=== PATIENT | female | born 1970 ===

== ENCOUNTER 2018-05-29 08:27 | Outpatient (CLI) | payer OTHER | END 2018-05-29 08:39 | disposition home or self-care (01) | LOC: NUCLEAR 08:27 | DX: I87.2 Venous insufficiency (chronic) (peripheral) (principal) ==

== ENCOUNTER 2018-10-11 22:19 | Emergency (ER) | payer OTHER ==
[~2018-10-11] VITALS: Ht 152.4 cm; Wt 63.5 kg
[2018-10-11] MEDS ORDERED: COZAAR25 MG (22:50)
== END 2018-10-12 04:45 | disposition home or self-care (01) ==
LOC: ER 22:19
DX: I10 Essential (primary) hypertension (principal)

== ENCOUNTER 2020-06-28 09:34 | Outpatient (CLI) | payer OTHER ==
[~2020-06-28 09:34] MED LIST: COZAAR25 MG
== END 2020-06-28 09:36 | disposition home or self-care (01) ==
LOC: NUCLEAR 09:34
PROVIDERS: ATTEND Internal Medicine Cardiovascular Disease
DX: I87.2 Venous insufficiency (chronic) (peripheral) (principal)